=== PATIENT | male | born 1985 | race Caucasian/White ===

== ENCOUNTER 2024-05-16 13:28 | Outpatient (CLI) | payer OTHER, SELFPAY | END 2024-05-16 13:29 | disposition home or self-care (01) | LOC: NFLDREF 05-17 11:30 | PROVIDERS: PCP Family Medicine; Referring Provider Family Medicine; Visit Provider Family Medicine | DX: Z13.6 Encounter for screening for cardiovascular disorders (principal); Z13.1 Encounter for screening for diabetes mellitus; Z12.5 Encounter for screening for malignant neoplasm of prostate | CPT/HCPCS: 80061; 82947; G0103 ==

== ENCOUNTER 2024-05-28 10:29 | Outpatient (CLI) | payer OTHER, SELFPAY ==
--- OUTSIDE RECORDS SUMMARY | 2024-05-28 10:30 | XMS_ITS | Clinical Summary ---
Author Organization [employer] Address [address] [place] [address] Care Team Providers Care Public Service Officer Name Role Phone No Primary/Referring, Zach Primary Care Provider Unavailable Source Comments You are receiving this document as you are listed as the primary care provider,follow-up provider, or the patient has been referred to you for consultation.This is in compliance with the Medicare and[facility] EHR Incentive Program,which states Providers who transition their patient to another setting of careor provider of care or refers their patient to another provider of care shouldprovide summary care record for each transition of care or referral. Granular Allergies Active Allergy Reactions Criticality Noted Date Comments Amoxicillin Rash 10/08/2005 Medications No known medications Active Problems Problem Noted Date Diagnosed Date Tobacco use disorder 07/08/2007 Immunizations Name Administration Dates Next Due Influenza IIV4 (Quadrivalent) 0.5mL (22210) 08/20 Td (7+ yrs) 11/17/2016 Tdap 03/07/2022,04/28/2010 Family History Medical History Relation Name Comments Brain Aneurysm Father Mid-40s Diabetes, Type II Father Hypertension Father Cancer Mother Blood - unsure which type Cancer, Skin Mother Hypertension Brother Cancer, Colon Maternal Grandfather Coronary Artery Disease Maternal Uncle Myocardial Infarction Maternal Uncle Migraines Sister Cancer, Prostate Negative Family History Relation Name Status Comments Father Alive Mother Alive Brother Alive Maternal Grandfather Maternal Uncle Sister Alive Social History Tobacco Use Types Packs/Day Years Used Date Smoking Tobacco: Every Day Cigarettes Smokeless Tobacco: Former Comments:Vaping Alcohol Use Standard Drinks/Week Comments No 0 (1 standard drink = 0.6 oz pur e alcohol) PHQ-2 Answer Date Recorded PHQ-2 Score 0 03/07/2022 Sex and Gender Information Value Date Recorded Sex Assigned at Not on file Gender Identity Not on file Sexual Orientation Not on file Last Filed Vital Signs Vital Sign Reading Time Taken Comments Blood Pressure 130/80 03/07/2022 1:34 PM CDT Pulse 78 03/07/2022 1:34 PM CDT Temperature 36.5 ??C (97.7 ??F) 04/25/2017 8:05 AM CD T Respiratory Rate 16 03/07/2022 1:15 PM CDT Oxygen Saturation - - Inhaled Oxygen Concentration - - Weight 81.2 kg (179 lb) 03/07/2022 1:15 PM CDT Height 172.5 cm (5' 7.91) 03/07/2022 1:15 PM CD T Body Mass Index 27.29 03/07/2022 1:15 PM CDT Plan of Treatment Upcoming Encounters Date Type Department Care Team (Late st Contact Info) Description 06/25/2024 2:30 PM CDT Appointment [place] [id number] [facility] [id number] [place] [phone] [place] [address] [place], [place] [id number] Health Maintenance Due Date Last Done Comments Hep C Screening (Preventive Services) 1985 Pneumococcal (1 - PCV) 1991 HIV Screening (Preventive Services) 2001 HepB (1) 2004 COVID-19 Vaccine ( - 2022-2 4 season) 2023 Adult Preventive Visit 03/07/2024 03/07/2022 Influenza (#1) 2024 09/07/2020 Cholesterol 03/11/2027 03/11/2022 DTaP/Tdap/Td (4 - Tdap) 03/07/2032 03/07/20, 11/17/2016, 04/28/2010 Zoster/Shingles (1 of 2) 2035 HPV Vaccine Aged Out No longer eligi ble based on patient's age to complete this topic HepA Aged Out No longer eligi ble based on patient's age to complete this topic Hib Aged Out No longer eligi ble based on patient's age to complete this topic IPV (Polio) Aged Out No longer eligi ble based on patient's age to complete this topic MCV4 Aged Out No longer eligi ble based on patient's age to complete this topic Procedures Procedure Name Priority Date/Time Associated Diagnosis Comments LIPID PANEL & DIRECT LDL (IF NEEDED) Routine 03/11/2022 8:09 AM CDT Lipid screening from Last 3 Months or Most Recently Relevant to Health Maintenance Results * (ABNORMAL) Lipid Panel - LDLD If Trig High (03/11/2022 8:09 AM CDT) Pathologist [facility] Cholesterol 187 0 - 199 mg/dL 03/11/2022 10:50 AM T [facility] Triglyceride 115 <=149 mg/dL 03/11/2022 10:50 AM T [facility] HDL Cholesterol 37(L) >=40 mg/dL 2 10:50 AM T [facility] LDL, Calculated 127 <130 mg/dL 2 10:50 AM [facility] Non HDL Chol, Calculated 150 <=159 mg/dL 03/11/2022 10:50 AM [facility] Cholesterol/HDL Ratio 5.1 03/11/2022 10:50 AM [facility] Hours Fasting 12 03/11/2022 10:50 AM T [facility] Blood Venipuncture / Unknown 03/11/2022 8:09 AM CDT 03/11/2022 8:09 AM CDT Hayden Diaz MD LAB[facility] [address] [place] [address], [facility] [phone] [facility] [address] [place] [address], [facility] [phone] from Last 3 Months or Most Recently Relevant to Health Maintenance Care Teams Public Service Officer Relationship Specialty Start Date End Date No Primary/Referring, Zach PCP - General 04/20/17
--- NOTE | 2024-05-28 11:22 | W.ANESCHARGE ---
Anesthesia Charges Start Date/Time Anesthesia Start Date: 05/28/24 Anesthesia Start Time: 11:03 Stop Date/Time Anesthesia Stop Date: 05/28/24 Anesthesia Stop Time: 11:25
--- NOTE | 2024-05-28 11:27 | W.ANESCHARGE ---
Anesthesia Charges Start Date/Time Anesthesia Start Date: 05/28/24 Anesthesia Start Time: 11:03 Stop Date/Time Anesthesia Stop Date: 05/28/24 Anesthesia Stop Time: 11:25
== END 2024-05-28 10:30 | disposition home or self-care (01) ==
LOC: OP CLINIC 10:29
PROVIDERS: PCP Family Medicine; Visit Provider Internal Medicine
DX: R19.5 Other fecal abnormalities (principal); K64.8 Other hemorrhoids; K63.5 Polyp of colon
CPT/HCPCS: 00811; 45380; 88305; J2704